=== PATIENT | female | born 1990 | race Caucasian/White ===

== ENCOUNTER 2021-05-22 14:41 | Emergency (ER) | payer MEDICAID ==
[~2021-05-22] VITALS: Ht 165.1 cm; Wt 71.7 kg
--- NOTE | 2021-05-22 16:56 | NUR ---
PT WAS EVALUATED BY DR BEARDEN. PT WAS D/C'd TO HOME. D/C INSTRUCTIONS GIVEN TO THE PT.
[2021-05-22 16:57] VITALS: BP 125/68
== END 2021-05-22 16:57 | disposition home or self-care (01) ==
LOC: ER 14:44
DX: U07.1 COVID-19 (principal); J40 Bronchitis, not specified as acute or chronic; R03.0 Elevated blood-pressure reading, without diagnosis of hypertension
CPT/HCPCS: A4663